=== PATIENT | male | born 1970 | race Caucasian/White ===

== ENCOUNTER 2022-02-03 12:03 | Day surgery (SDC) | payer OTHER ==
[2022-02-03] MEDS ORDERED: LIDOCAINE HCL 2% 100 MG/5 ML IJ ONE (12:04)
[2022-02-03] MEDS ORDERED: Depo-Medrol 40 MG/ML IM ONE (12:04)
[2022-02-03] MEDS ORDERED: Lactated Ringers 1,000 ML IV ONE (14:18)
[2022-02-03] MEDS ORDERED: DIPRIVAN 200 MG/20 ML IV ONE (15:02)
--- NOTE | 2022-02-03 16:37 | XRAY ---
Indication: Bilateral L4-S1 MBB. Intraoperative fluoroscopy provided for 9 seconds. Single digital spot image submitted for interpretation demonstrates posterior needle tips projecting over the expected left and right L4-S1 nerve roots. Correlate with intraoperative findings/report.
--- NOTE | 2022-02-03 16:46 | XRAY ---
9 seconds of fluoroscopy was used in surgery for a bilateral L4-S1 MBB.
== END 2022-02-03 15:30 | disposition home or self-care (01) ==
LOC: SDC-PAIN 12:03
PROVIDERS: ATTEND Psychiatry & Neurology Pain Medicine
DX: M47.816 Spondylosis without myelopathy or radiculopathy, lumbar region (principal); Z79.899 Other long term (current) drug therapy
CPT/HCPCS: 64493; 64494; 72020; 77002; J1030; J2704

== ENCOUNTER 2022-03-10 14:11 | Day surgery (SDC) | payer OTHER ==
[2022-03-10] MEDS ORDERED: Marcaine Mpf 0.5% Vial 30 Ml IJ ONE (14:12)
[2022-03-10] MEDS ORDERED: Depo-Medrol 40 MG/ML IM ONE (14:12)
[2022-03-10] MEDS ORDERED: DIPRIVAN 200 MG/20 ML IV ONE ×2 (15:35→15:48)
--- NOTE | 2022-03-10 16:16 | XRAY ---
Indication: Bilateral L4-S1 MBB. Intraoperative fluoroscopy provided for 10 seconds. Single digital spot image submitted for interpretation demonstrates posterior needle tips projecting over the expected left and right L4-S1 nerve roots. Correlate with intraoperative findings/report.
--- NOTE | 2022-03-10 17:37 | XRAY ---
10 seconds of fluoroscopy was used in surgery for a bilateral L4-S1 MBB.
[2022-03-10] MEDS ORDERED: Lactated Ringers 1,000 ML IV ONE (17:42)
== END 2022-03-10 16:03 | disposition home or self-care (01) ==
LOC: SDC-PAIN 14:11
PROVIDERS: ATTEND Psychiatry & Neurology Pain Medicine
DX: M47.816 Spondylosis without myelopathy or radiculopathy, lumbar region (principal); Z79.899 Other long term (current) drug therapy
CPT/HCPCS: 64493; 64494; 72020; 77002; J1030; J2704

== ENCOUNTER 2022-10-13 09:39 | Day surgery (SDC) | payer OTHER ==
[2022-10-13] MEDS ORDERED: LIDOCAINE HCL 1% 50 MG/5 ML VL PF IJ ONE (09:40)
[2022-10-13] MEDS ORDERED: Depo-Medrol 40 MG/ML IM ONE (09:40)
[2022-10-13] MEDS ORDERED: BUPIVACAINE 0.5% VIAL IJ ONE (09:40)
--- NOTE | 2022-10-13 12:25 | XRAY ---
18 seconds of fluoroscopy was used in surgery for a right intra-articular shoulder and right subacromical bursa injection.
--- NOTE | 2022-10-13 12:25 | XRAY ---
Indication: Right shoulder and subacromial bursa injection. Intraoperative fluoroscopy provided for 18 seconds. 2 digital spot image submitted for interpretation demonstrates needle tip projecting over the right glenohumeral joint superiorly. Second needle tip subacromial. Small amount of contrast injected for both needle tip placement. Correlate with intraoperative findings/report.
== END 2022-10-13 11:43 | disposition home or self-care (01) ==
LOC: SDC-PAIN 09:39
PROVIDERS: ATTEND Psychiatry & Neurology Pain Medicine
DX: M19.011 Primary osteoarthritis, right shoulder (principal); M75.51 Bursitis of right shoulder; Z79.899 Other long term (current) drug therapy
CPT/HCPCS: 20610; 73030; 77002; J1030; J2001; Q9966

== ENCOUNTER 2023-03-06 16:15 | Emergency (ER) | payer OTHER ==
[2023-03-06] MEDS ORDERED: TORAdol 30 mg Injection IM ONE (17:15)
--- NOTE | 2023-03-06 17:20 | ERPHSYRPT ---
- History of Present Illness Source: patient Exam Limitations: no limitations Patient Subjective Stated Complaint: PT states "I was at work and I hit the chain on an underground [employer] car on my left ramirez." Triage Nursing Assessment: PT presented alert and oriented X 3, skin pwd. Pt ambulates with a limp. Pt has brusiing noted to left ramirez and bruising noted to left ankle and heel. Physician History: 52 yo WM w L pre-tibial injury after getting clotheslined by a chain at work while in a vehicle [place] the [place] on 01/28/23. Pain is 4/10 and worse w weight bearing/movement. No other injuries reported at this time. Method of Injury: direct blow Occurred: other (01/28/23) Quality: constant Lower Extremities Pain: leg: left Modifying Factors: Improves With: movement Associated Symptoms: none Allergies/Adverse Reactions: naproxen Allergy (Verified 03/29/16 13:48) Home Medications: Hydrochlorothiazide 25 mg [hydroDIURIL 25 MG] 25 mg PO DAILY 11/27/15 [History] Lorazepam 0.5 mg [Ativan 0.5 MG] 0.5 mg PO Q4HPRN PRN 11/27/15 [History] [place]-3 Fatty Acids/Fish Oil [Fish Oil 1,000 mg Capsule] 1,000 mg PO DAILY 11/27/15 [History] Potassium Bicarbonate/Cit AC [Potassium 25 Meq Tablet Eff] 25 meq PO DAILY 11/27/15 [History] Desvenlafaxine Succinate [Pristiq ER] 100 mg PO DAILY 03/29/16 [History] armodafiniL [Nuvigil] 150 mg PO HS 03/29/16 [History] Hx Tetanus, Diphtheria Vaccination/Date Given: No Hx Influenza Vaccination/Date Given: Yes Hx Pneumococcal Vaccination/Date Given: No Immunizations Up to Date: Yes Travel Risk - International Travel Have you traveled outside of the country in past 3 weeks: No - Coronavirus Screening Are you exhibiting any of the following symptoms?: No Close contact with a COVID-19 positive Pt in past 14-21 Days: No - Vaccine Status Have you recieved a Covid-19 vaccination: No - Review of Systems Constitutional: No Symptoms Eyes: No Symptoms Ears, Nose, & Throat: No Symptoms Respiratory: No Symptoms Cardiac: No Symptoms Abdominal/Gastrointestinal: No Symptoms Genitourinary Symptoms: No Symptoms Skin: No Symptoms Neurological: No Symptoms Psychological: No Symptoms Endocrine: No Symptoms Hematologic/Lymphatic: No Symptoms Immunological/Allergic: No Symptoms - Past Medical History Pertinent Past Medical History: Yes Psycho-Social History: Depression - Past Surgical History Past Surgical History: Yes Gastrointestinal: Hernia Repair Other Surgical History: right LEG SURGERY,HERNIA REPAIR,TONSILLS. - Social History Smoking Status: Never smoker Exposure to second hand smoke: Yes Drug Use: none Patient Lives Alone: No - Nursing Vital Signs Nursing Vital Signs: Initial Vital Signs Temperature 98.6 F 03/06/23 16:27 Pulse Rate 90 03/06/23 16:27 Respiratory Rate 20 03/06/23 16:27 Blood Pressure 138/83 03/06/23 16:27 O2 Sat by Pulse Oximetry 96 03/06/23 16:27 Pain Scale Pain Intensity 5 WNL - Physical Exam General Appearance: no apparent distress Eyes, Ears, Nose, Throat Exam: normal ENT inspection, TMs normal, pharynx normal, moist mucous membranes Neck Exam: normal inspection, non-tender, supple, full range of motion, No Brudzinski, No Kernig's, No meningismus, No carotid bruit Cardiovascular/Respiratory Exam: normal breath sounds, regular rate/rhythm, heart sounds normal Gastrointestinal/Abdominal Exam: non-tender, soft Back Exam: normal inspection, normal range of motion, No CVA tenderness, No vertebral tenderness Hips Exam: bilateral: non-tender, normal inspection, normal range of motion, no evidence of injury Legs Exam: left leg: other (L pre-tibial area w old ecchymosis/Mild edema/Mild to moderate TTP/Good pedal pulse, distal sensation, and capillary return) Knees Exam: bilateral knee: non-tender, normal inspection, normal range of motion, no evidence of injury Ankle Exam: bilateral ankle: non-tender, normal inspection, normal range of motion, no evidence of injury Foot Exam: bilateral foot: non-tender, normal inspection, normal range of janessa on, no evidence of injury DTR - Lower Extremities Exam: knee (R): 2+, knee (L): 2+ Neuro/Tendon Exam: normal sensation, normal motor functions, normal tendon functions, responds to pain, no evidence tendon injury, No motor deficit, No sensory deficit Mental Status Exam: alert, oriented x 3 Skin Exam: warm, dry SpO2 Interpretation: normal SpO2: 96 O2 Delivery: Room Air - Course Nursing assessment & vital signs reviewed: Yes - Radiology Exams Lower Leg X-ray Interpretation: Interpreted by me (L tib-fib neg per ER read) Ordered Tests: Active Orders 24 hr Category Date Time Status LOWER LEG Stat Exams 03/06/23 16:29 Taken Medication Summary Discontinued Medications Generic Name Dose Route Start Last Admin Trade Name Ellen PRN Reason Stop Dose Admin Ketorolac Tromethamine 30 mg 03/06/23 17:15 03/06/23 17:27 Ketorolac Tromethamine 30 Mg/Ml Inj IM 03/06/23 17:16 30 mg STAT ONE Administration Ketorolac Tromethamine Confirm 03/06/23 17:25 Ketorolac Tromethamine 30 Mg/Ml Inj Administered 03/06/23 17:26 Dose 30 mg .ROUTE .STK-MED ONE - Progress Progress Note: 03/06/23 17:31 Nursing note and vital signs reviewed No food or housing insecurities noted XR L tib-fib neg per ER interpretation and shared w pt 30mg IM Toradol Pt has Vicodin at home for pain Counseled pt/family regarding: diagnosis, need for follow-up, rad results Medical Desision Making - Diagnostic Testing Radiological Interpretation: Interpreted by me - Risk of complications Low Risk: Low risk of morbidity from additional dx testing or treatment - Departure Departure Disposition: Home Clinical Impression: Contusion of leg, left Condition: Stable Critical Care Time: No Referrals: DOCTOR,NO FAMILY [Primary Care Provider] - Follow up/PCP as directed Instructions: Contusion (DC) Additional Instructions: Continue with home pain meds Weight bearing as tolerated Follow up with your family MD or orthopedic clinic M-Fr 8-10AM for continued pain Return to ER as needed
[2023-03-06] MEDS ORDERED: TORAdol 30 mg Injection ONE (17:25)
[2023-03-06 17:30] VITALS: BP 132/80; PULSE 80
[2023-03-06 17:33] VITALS: O2SAT 96
--- NOTE | 2023-03-06 21:11 | XRAY ---
Indication: Bruising following injury. Comparison: None 2 view left lower leg obtained. No bony, articular, or soft tissue abnormalities.
== END 2023-03-06 17:40 | disposition home or self-care (01) ==
LOC: ED 16:15
DX: S80.12XA Contusion of left lower leg, initial encounter (principal); W20.8XXA Other cause of strike by thrown, projected or falling object, initial encounter; Y92.64 Mine or pit as the place of occurrence of the external cause; Y99.0 Civilian activity done for income or pay; Z79.899 Other long term (current) drug therapy; Z28.310 Unvaccinated for COVID-19
CPT/HCPCS: 73590; 96372; 99283; J1885

== ENCOUNTER 2023-03-16 16:32 | Day surgery (SDC) | payer OTHER ==
[2023-03-16] MEDS ORDERED: LIDOCAINE HCL 1% 50 MG/5 ML VL PF IJ ONE (16:33)
[2023-03-16] MEDS ORDERED: BUPIVACAINE 0.5% VIAL IJ ONE (16:33)
[2023-03-16] MEDS ORDERED: Depo-Medrol 40 MG/ML IM ONE (16:33)
--- NOTE | 2023-03-16 18:57 | XRAY ---
Indication: Right shoulder and subacromial bursa injection. Intraoperative fluoroscopy provided for 37 seconds. 3 digital spot image submitted for interpretation demonstrates needle tip projecting over the right glenohumeral joint superiorly. Second needle tip subacromial. Small amount of contrast injected for both needle tip placement. Correlate with intraoperative findings/report.
--- NOTE | 2023-03-17 09:47 | XRAY ---
37 seconds of fluoroscopy was used in surgery for a right intra-articular shoulder and right subacromial bursa injection.
== END 2023-03-16 18:25 | disposition home or self-care (01) ==
LOC: SDC-PAIN 16:32
PROVIDERS: ATTEND Psychiatry & Neurology Pain Medicine
DX: M19.011 Primary osteoarthritis, right shoulder (principal); M75.51 Bursitis of right shoulder; Z79.899 Other long term (current) drug therapy
CPT/HCPCS: 20610; 73030; 77002; J1030; J2001; Q9966